=== PATIENT | female | born 1950 | race Caucasian/White ===

== ENCOUNTER → 2017-04-28 | Outpatient (CLI) | payer MEDICARE, BC ==
--- NOTE | 2017-04-28 14:55 | BD ---
EXAMINATION TYPE: MG DEXA axial skeleton. DATE OF EXAM: 04/28/2017 COMPARISON: NONE CLINICAL HISTORY: Height: 5 ft 2 1/2 in Weight: 163 FRAX RISK QUESTIONS: Alcohol (3 or more units per day): NO Family History (Parent hip fracture): NO Glucocorticoids (More than 3mos): NO (Ex: prednisone, prednisolone, methylprednisolone, dexamethasone, and hydrocortisone). History of Fracture in Adulthood: NO Secondary Osteoporosis: 1. Type 1 Diabetes: NO 2. Hyperthyroidism: NO 3. Menopause before 45: NO 4. Malnutrition: NO 5. Chronic liver disease: NO Rheumatoid Arthritis: NO Current Tobacco Use: NO RISK FACTORS HISTORY OF: Active: YES Postmenopausal woman: AGE 54 MEDICATIONS: Additional Medications: HYDROCHLOROTHIAZIDE,COZAAR,CARDISEM Additional History: EXAM MEASUREMENTS: Bone mineral densitometry was performed using the Algolux System. Bone mineral density as measured about the Lumbar spine is: ----- L1-L4(G/cm2): 1.444 T Score Values are as follows: ----- L2: 2.3 ----- L3: 2.4 ----- L4: 2.8 ----- L1-L4: 2.2 NO PREV HERE Bone mineral density about the R hip (g/cm2): 1.045 Bone mineral density about the L hip (g/cm2): 1.070 T Score values are as follows: -----R Neck: 0.0 -----L Neck: 0.2 -----R Total: 0.5 -----L Total: 0.3 NO PREV HERE IMPRESSION: Unremarkable study NOTE: T-SCORE=SD OF THE YOUNG ADULT MEAN.
== END | disposition home or self-care (01) ==
LOC: RADBDWWP 12:27
PROVIDERS: ATTEND Family Medicine
DX: M84.469A Pathological fracture, unspecified tibia and fibula, initial encounter for fracture (principal)
CPT/HCPCS: 77080

== ENCOUNTER 2018-05-24 19:37 | Emergency (ER) | payer MEDICARE, BC ==
[2018-05-24 19:43] VITALS: TEMP 98.4
[2018-05-24] MEDS ORDERED: MORPHINE SULFATE 4 MG/ML SYRINGE IVP STA (19:48)
[2018-05-24] MEDS ORDERED: ONDANSETRON 4 MG/2 ML VIAL IVP STA (19:48)
--- NOTE | 2018-05-24 19:55 | ED ---
Upper Extremity HPI - General Source: patient, RN notes reviewed Mode of arrival: wheelchair Limitations: no limitations - History of Present Illness MD Complaint: Injury to:: left, shoulder Other Injuries: none Handedness: left Place: home Improves With: none Worsens With: movement of extremity Context: fall Associated Symptoms: denies other symptoms <Gonzalez Hobbs - Last Filed: 05/24/18 21:12> <Arti Morris - Last Filed: 06/03/18 07:24> - General Chief Complaint: Extremity Injury, Upper Stated Complaint: Shoulder pain Time Seen by Provider: 05/24/18 19:44 - History of Present Illness Initial Comments: This is a pleasant 68-year-old female presents emergency department complaining of left shoulder pain. Patient fell at home just prior to arrival. Patient tripped. There were no preceding symptoms. No chest pain or shortness of breath. No loss of consciousness. There was no head or neck injury. Patient is complaining of pain to the left shoulder which is exacerbated by movement. Pain is sharp in nature. Patient denies any distal paresthesias. Patient complaining of mild pain to the left neck muscle area. Patient denies any midline pain. No back pain. No right arm pain. No leg pain. No hip pain. No chest pain or abdominal pain. Patient pointing to the anterior aspect of her left shoulder. Patient did fall forward onto the anterior aspect of shoulder. Patient believes it is dislocated. (Gonzalez Hobbs) - Related Data Allergies Allergy/AdvReac Type Severity Reaction Status Date / Time No Known Allergies Allergy Verified 05/24/18 19:42 Review of Systems ROS Other: All systems not noted in ROS Statement are negative. (Negative other than what is stated in the HPI) <Gonzalez Hobbs - Last Filed: 05/24/18 21:12> ROS Other: All systems not noted in ROS Statement are negative. <Arti Morris - Last Filed: 06/03/18 07:24> ROS Statement: Those systems with pertinent positive or pertinent negative responses have been documented in the HPI. Past Medical History Past Medical History: Hypertension History of Any Multi-Drug Resistant Organisms: None Reported Past Surgical History: Orthopedic Surgery Past Psychological History: No Psychological Hx Reported Smoking Status: Never smoker Past Alcohol Use History: Occasional Past Drug Use History: None Reported <Gonzalez Hobbs - Last Filed: 05/24/18 21:12> General Exam Limitations: no limitations General appearance: alert, in distress Head exam: Present: atraumatic, normocephalic, normal inspection Eye exam: Present: normal appearance, PERRL, EOMI. Absent: scleral icterus, conjunctival injection, periorbital swelling ENT exam: Present: normal exam, normal oropharynx, mucous membranes moist Neck exam: Present: normal inspection, full ROM Respiratory exam: Present: normal lung sounds bilaterally. Absent: respiratory distress, wheezes, rales, rhonchi, stridor Cardiovascular Exam: Present: regular rate, normal rhythm, normal heart sounds. Absent: systolic murmur, diastolic murmur, rubs, gallop, clicks GI/Abdominal exam: Present: soft, distended. Absent: tenderness, guarding, rebound, rigid Extremities exam: Present: tenderness, normal capillary refill. Absent: normal inspection, full ROM, pedal edema Left Shoulder Exam: Present: tenderness, other (Patient does have a sulcus sign noted below the acromion on the left.). Absent: normal inspection, full ROM, swelling, abrasion, laceration, ecchymosis, deformity, crepitus, dislocation, erythema Elbow exam: Present: normal inspection, full ROM. Absent: tenderness, swelling , abrasion Forearm Wrist exam: Present: normal inspection. Absent: full ROM, tenderness Hand Wrist exam: Present: normal inspection. Absent: full ROM, tenderness Vascular: Present: normal capillary refill. Absent: vascular compromise, Pallo , pulse deficit radial art Back exam: Present: normal inspection, full ROM. Absent: tenderness Neurological exam: Present: alert, oriented X3, CN II-XII intact, normal gait. Absent: motor sensory deficit Psychiatric exam: Present: normal affect, normal mood Skin exam: Present: warm, dry, intact, normal color. Absent: rash <Gonzalez Hobbs - Last Filed: 05/24/18 21:12> <Arti Morris - Last Filed: 06/03/18 07:24> - General Exam Comments Initial Comments: This a well-developed, well-nourished 62 sexual female in moderate distress. ( Gonzalez Hobbs) Vital Signs 05/24/18 05/24/18 05/24/18 19:39 20:54 20:56 Temperature 98.4 F Pulse Rate 89 82 93 Respiratory 20 18 18 Rate Blood Pressure 158/78 152/79 162/90 O2 Sat by Pulse 97 100 98 Oximetry 05/24/18 05/24/18 05/24/18 20:59 21:01 21:07 Temperature Pulse Rate 99 93 Respiratory 98 H 20 18 Rate Blood Pressure 174/107 126/79 116/64 O2 Sat by Pulse 100 99 93 L Oximetry 05/24/18 05/24/18 21:11 21:30 Temperature Pulse Rate 83 90 Respiratory 18 18 Rate Blood Pressure 133/84 147/88 O2 Sat by Pulse 95 94 L Oximetry Procedures - Orthopedic Joint Reduction Joint #1 Consent Obtained: written consent Time Out Performed: Yes (2056) Side: left Joint Reduction Location: shoulder Analgesia: procedural sedation Shoulder Technique Used (if applicable): traction/counter-traction (Modified Hippocratic technique) Post-Reduction Neuro Exam: intact Post-Reduction Vascular Exam: intact Post Reduction X-Ray Obtained: Yes Post Reduction X-Ray Results: reduced Splint Applied: No Patient Tolerated Procedure: well, no complications <Gonzalez Hobbs - Last Filed: 05/24/18 21:12> - Procedural Sedation Procedural Sedation Start Time: 20:50 Procedural Sedation Stop Time: 20:55 Indications: fracture/dislocation reduction Mallampati Airway Score: 1 Preparation: athletic monitor applied, pulse oximeter, capnometry used, supplemental O2 applied, suction/airway equipment at bedside, IV secured IV Propofol Dose (mgs): 200 <Arti Morris P - Last Filed: 06/03/18 07:24> - Orthopedic Joint Reduction Joint #1 Additional Comments: Sling applied (Gonzalez Hobbs) Medical Decision Making <Gonzalez Hobbs - Last Filed: 05/24/18 21:12> <Arti Morris - Last Filed: 06/03/18 07:24> - Medical Decision Making Procedural sedation was managed by Dr. Morris. Propofol was used. Shoulder reduction was performed with modified Hippocratic technique. Patient tolerated well. Post reduction x-ray read by me reveals adequate relocation of the glenohumeral joint. There was no evidence of fracture. All findings were discussed with the patient. Follow-up as discussed. On-call orthopedic physician follow-up given to the patient. Return and follow-up parameters discussed. Patient and understand the plan. The supervising is was in the ER the entire time and actually manage the procedural sedation. sling was applied. Distal neurovascular status intact. (Gonzalez Hobbs) I personally saw and examined the patient. I reviewed and agree with the mid- level provider findings including all diagnostic interpretations and treatment plans as written unless otherwise stated. I was present for shukla portions of any procedures performed. I performed the procedural sedation while the reduction was performed by the mid -level provider. (Arti Morris) Disposition Is patient prescribed a controlled substance at d/c from ED?: No Time of Disposition: 21:21 <Gonzalez Hobbs - Last Filed: 05/24/18 21:12> <Arti Morris - Last Filed: 06/03/18 07:24> Clinical Impression: Closed traumatic dislocation of left glenohumeral joint Disposition: HOME SELF-CARE Condition: Good Instructions: Shoulder Dislocation (ED) Additional Instructions: Wear the sling as directed. Follow-up with orthopedics as directed. Apply ice to the area 20 minutes on and off for the next 48 hours. Use [id number] ibuprofen and acetaminophen as directed for pain control. Return to the ER immediately if any problems or difficulties arise. Referrals: None,Stated [Primary Care Provider] - 1-2 days
[2018-05-24] MEDS ORDERED: PROPOFOL 1,000 MG in EMPTY BAG 1 BAG IV SCH (20:45)
--- NOTE | 2018-05-24 20:48 | XR ---
EXAMINATION TYPE: XR cervical spine limited DATE OF EXAM: 05/24/2018 TECHNIQUE: Frontal and lateral views of the cervical spine as well as odontoid view is obtained. HISTORY: Neck pain COMPARISON: None FINDINGS: There is straightening of the usual cervical lordosis and there is very mild anterolisthes is of C4 on C5, likely on a degenerative basis as there is extensive degenerative change from C4 thro ugh C7. This is displayed is uncovertebral hypertrophy, facet arthropathy, intervertebral disc space narrowing, small anterior osteophytes and endplate sclerosis. No appreciable soft tissue swelling is seen at this level. More distal soft tissue evaluation is obscured by the patient's shoulders. The C1-C2 articulation is within normal limits on the open mouth view. IMPRESSION: No gross evidence of acute fracture or dislocation in cervical spine. Grade 1 anterolisth esis of C4 and C5 is likely on a degenerative basis as there is extensive degenerative change from C4 through C7 and no prevertebral soft tissue swelling at this level. Straightening of the usual cervic al lordosis may relate to muscular sprain or spasm.
--- NOTE | 2018-05-24 20:50 | XR ---
EXAMINATION TYPE: XR shoulder complete LT DATE OF EXAM: 05/24/2018 CLINICAL HISTORY: Left TECHNIQUE: Three views of the left shoulder are obtained. COMPARISON: None. FINDINGS: There is anterior dislocation of the left shoulder. No discrete fracture is seen. Mild acro wayne clavicular arthropathy is noted in addition to extensive spurring of the distal acromion. The vis ualized ribs are intact and unremarkable. IMPRESSION: Anterior dislocation of the left shoulder. No discrete fracture is seen of the left shoul leigh ann. Extensive spurring of the undersurface of the acromion is likely degenerative.
[2018-05-24 21:08] VITALS: RESP 18
[2018-05-24 21:31] VITALS: BP 147/88; PULSE 90
--- NOTE | 2018-05-24 21:34 | XR ---
EXAMINATION TYPE: XR shoulder limited LT DATE OF EXAM: 05/24/2018 CLINICAL HISTORY: Left shoulder dislocation. TECHNIQUE: 2 views of the left shoulder were obtained. COMPARISON: None. FINDINGS: The recently seen dislocation of the left shoulder is no longer present. The humeral head o verlaps with the glenoid on 2 views. Moderate acromio clavicular arthropathy is seen. There is no gertrudis ss evidence of acute fracture or dislocation identified. IMPRESSION: Relocation of the left shoulder. No gross evidence of acute fracture or dislocation of th e left shoulder.
[2018-05-25] MEDS ORDERED: PROPOFOL 10 MG/ML 20 ML VIAL IV ONE (20:45)
== END 2018-05-24 21:31 | disposition home or self-care (01) ==
LOC: EC 19:37
DX: S43.015A Anterior dislocation of left humerus, initial encounter (principal); R14.0 Abdominal distension (gaseous); M54.2 Cervicalgia; W01.0XXA Fall on same level from slipping, tripping and stumbling without subsequent striking against object, initial encounter; Y92.009 Unspecified place in unspecified non-institutional (private) residence as the place of occurrence of the external cause
CPT/HCPCS: 99283; 23650; 96374; 96375; 72040; 73030; 73020; J2270; J2405; J2704

== ENCOUNTER 2020-06-08 23:27 | Emergency (ER) | payer MEDICARE, BC ==
[2020-06-08 23:35] VITALS: RESP 18
[2020-06-08] MEDS ORDERED: DIPH,PERTUS(ACELL)TETVAC-LF 0.5 ML VIAL IM ONE (23:59)
--- NOTE | 2020-06-09 00:42 | CT ---
EXAMINATION TYPE: CT brain maria victoria hoover DATE OF EXAM: 06/09/2020 COMPARISON: None HISTORY: Fall Headache. Neck pain. CT DLP: 1305 mGycm Automated exposure control for dose reduction was used. There is some cerebral cortical atrophy. There is no mass effect nor midline shift. There is no sign of intracranial hemorrhage. Calvarium is intact. There is no evidence of cerebral edema. There is mild straightening of the cervical spine and slight kyphotic curvature. There is disc space narrowing at C5-6 and C6-7 with spurring of the endplates. There is no compression fracture. Preverte bral soft tissues are intact. Facet joints are intact. There is no evidence of cervical spine fractur e. There is multilevel hypertrophic cervical facet arthropathy. IMPRESSION: Cerebral atrophy. No acute intracranial abnormality. Spondylotic changes in the lower cervical spine. No fracture.
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
[2020-06-09 01:36] VITALS: BP 116/84; PULSE 84; TEMP 97.8
== END 2020-06-09 01:18 | disposition home or self-care (01) ==
LOC: EC 23:27
DX: S01.01XA Laceration without foreign body of scalp, initial encounter (principal); F10.129 Alcohol abuse with intoxication, unspecified; Z23 Encounter for immunization; Z87.891 Personal history of nicotine dependence; Z88.2 Allergy status to sulfonamides; Y90.0 Blood alcohol level of less than 20 mg/100 ml; X58.XXXA Exposure to other specified factors, initial encounter
CPT/HCPCS: 12002; 70450; 72125; 82075; 90471; 90715; 99284